=== PATIENT | female | born 1985 | race Caucasian/White ===

== ENCOUNTER 2020-09-08 07:58 | Emergency (ER) | payer MEDICAID ==
[~2020-09-08] VITALS: Ht 165.1 cm; Wt 62.0 kg
[2020-09-08] MEDS ORDERED: PENI500T2 PO (09:05)
[2020-09-08 09:15] VITALS: BP 136/95
== END 2020-09-08 09:16 | disposition home or self-care (01) ==
LOC: ER 07:59
DX: K02.9 Dental caries, unspecified (principal); K08.89 Other specified disorders of teeth and supporting structures; Z79.2 Long term (current) use of antibiotics
CPT/HCPCS: 99283